=== PATIENT | female | born 1940 | race Caucasian/White ===

== ENCOUNTER → 2017-09-13 | Outpatient (CLI) | payer MEDICARE, BC ==
[2017-09-13 19:54] LABS: ALT 32 U/L (9-52); AST 18 U/L (14-36); Albumin 3.7 g/dL (3.5-5.0); Alkaline Phosphatase 74 U/L (38-126); Anion Gap 10 mmol/L; Basophils % (A) 1 %; Blood Urea Nitrogen 17 mg/dL (7-17); Calcium 9.5 mg/dL (8.4-10.2); Carbon Dioxide 32 mmol/L (22-30); Chloride 99 mmol/L (98-107); Cholesterol 133 mg/dL (<200); Eosinophils # (A) 0.2 k/uL (0-0.7); Eosinophils % (A) 2 %; Glucose 146 mg/dL (74-99); HDL Cholesterol 67 mg/dL (40-60); HGB 11.2 gm/dL (11.4-16.0); LDL Cholesterol,Calculated 44 mg/dL (0-99); Lymphocytes # (A) 2.1 k/uL (1.0-4.8); Lymphocytes % (A) 28 %; MCHC 31.2 g/dL (31.0-37.0); MCV 96.2 fL (80.0-100.0); Mean Platelet Volume 8.3; Monocytes # (A) 0.6 k/uL (0-1.0); Monocytes % (A) 7 %; Neutrophils # (A) 4.5 k/uL (1.3-7.7); Neutrophils % (A) 60 %; Platelet Count 243 k/uL (150-450); Potassium 4.5 mmol/L (3.5-5.1); RBC 3.74 m/uL (3.80-5.40); RDW 12.8 % (11.5-15.5); Sodium 141 mmol/L (137-145); Total Bilirubin 0.3 mg/dL (0.2-1.3); Triglycerides 108 mg/dL (<150); WBC 7.5 k/uL (3.8-10.6)
[2017-09-13 20:09] LABS: T4, Free (Free Thyroxine) 1.14 ng/dL (0.78-2.19)
[2017-09-14 01:33] LABS: Hemoglobin A1C 8.1 % (4.0-6.0)
== END | disposition home or self-care (01) ==
LOC: MMGSC 10:03
PROVIDERS: ATTEND Family Medicine
DX: I10 Essential (primary) hypertension (principal); E11.9 Type 2 diabetes mellitus without complications; E78.5 Hyperlipidemia, unspecified; G25.81 Restless legs syndrome
CPT/HCPCS: 36415; 80053; 80061; 82043; 82570; 83036; 84439; 84443; 85025

== ENCOUNTER → 2020-06-24 | Outpatient (CLI) | payer MEDICARE, BC ==
--- NOTE | 2020-06-26 13:52 | MM ---
Reason for exam: screening (asymptomatic). Last mammogram was performed 1 year and 5 months ago. History: Patient is postmenopausal. Physical Findings: A clinical breast exam by your physician is recommended on an annual basis and results should be correlated with mammographic findings. MG 3D Screening Mammo W/Cad Bilateral CC and MLO view(s) were taken. Prior study comparison: February 01, 2019, mammogram, performed at [facility]. January 17, 2017, mammogram, performed at [facility]. There are scattered fibroglandular densities. There is chronic nodularity bilaterally. Benign vascular calcifications. No significant changes when compared with prior studies. ASSESSMENT: Negative, BI-RAD 1 RECOMMENDATION: Routine screening mammogram of both breasts in 1 year.
== END | disposition home or self-care (01) ==
LOC: RADMAMWWP 13:07
PROVIDERS: ATTEND Family Medicine
DX: Z12.31 Encounter for screening mammogram for malignant neoplasm of breast (principal)
CPT/HCPCS: 77063; 77067

== ENCOUNTER → 2021-08-19 | Outpatient (CLI) | payer MEDICARE, BC ==
--- NOTE | 2021-08-23 12:08 | MM ---
Reason for exam: screening (asymptomatic). Last mammogram was performed 1 year and 2 months ago. History: Patient is postmenopausal. Physical Findings: A clinical breast exam by your physician is recommended on an annual basis and results should be correlated with mammographic findings. MG 3D Screening Mammo W/Cad Bilateral CC and MLO view(s) were taken. XCCL view(s) were taken of the left breast. Prior study comparison: June 24, 2020, bilateral MG 3d screening mammo w/cad. February 01, 2019, mammogram, performed at [facility]. There are scattered fibroglandular densities. Benign secretory and vascular calcifications. No significant changes when compared with prior studies. ASSESSMENT: Benign, BI-RAD 2 RECOMMENDATION: Routine screening mammogram of both breasts in 1 year.
== END | disposition home or self-care (01) ==
LOC: RADMAMWWP 09:55
PROVIDERS: ATTEND Family Medicine
DX: Z12.31 Encounter for screening mammogram for malignant neoplasm of breast (principal); Z78.0 Asymptomatic menopausal state
CPT/HCPCS: 77063; 77067

== ENCOUNTER → 2021-12-21 | Outpatient (CLI) | payer MEDICARE, BC ==
--- NOTE | 2021-12-21 11:27 | XR ---
EXAMINATION TYPE: XR cervical spine limited DATE OF EXAM: 12/21/2021 TECHNIQUE: Frontal, lateral, and open mouth view of the cervical spine are obtained. HISTORY: M54.42 M99.03 Sciatic Pain with low back pain radi COMPARISON: None FINDINGS: The cervical spine is visualized in its entirety from C1 thru the top of T1 level, there i s slight grade 1 retrolisthesis C2 on C3 with more prominent grade 1 retrolisthesis C3 on C4. There i s slight grade 1 retrolisthesis C4 on C5 and C5 on C6. Osseous structures are demineralized. The pre-vertebral soft tissue appears within normal limits. Th e C1-C2 articulation is within normal limits on the open mouth view. Vertebral body heights are maintained. Moderate to severe spurring and disc space narrowing C3-C4 and C4-C5 levels. [id number] disc space narrowing with moderate spurring C5-C6 level. Mild to mo derate disc space narrowing and spurring C6-C7 level. Prominent spur from the anterior inferior C7 ve rtebra. Mild calcification left carotid bulb level is present in the overlying soft tissue. IMPRESSION: As above.
--- NOTE | 2021-12-21 11:33 | XR ---
EXAMINATION TYPE: XR lumbar spine 2 or 3V DATE OF EXAM: 12/21/2021 CLINICAL HISTORY: Low back pain into left leg. TECHNIQUE: Frontal and lateral images of the lumbar spine are obtained. COMPARISON: None FINDINGS: There are 5 lumbar type vertebral bodies identified. There is levoconvex scoliosis centere d at L1-L2 level. There is severe disc space narrowing and spurring at L1-L2 level with endplate sclerosis. There is av ulsed anterior inferior L1 vertebra which has mild chronic compression type fracture or height loss. Severe disc space narrowing and moderate to severe spurring at L4-L5 level with vacuum disc phenomeno n. Moderate to severe disc space narrowing and spurring at L3-L4 level. Moderate disc space narrowing L5-S1 level with vacuum disc phenomenon. Large anterior osteophytes at T12-L1 level. Moderate chroni c compression type fracture involving the T12 vertebra with approximately 50% height loss. 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 Multilevel Facet arthropathy mid to lower lumbar s pine. Additional moderate to severe multilevel anterior and lateral spurring. Mild overlying arterial vascular calcification. IMPRESSION: As above.
== END | disposition home or self-care (01) ==
LOC: RADXRMAIN 10:59
DX: M43.12 Spondylolisthesis, cervical region (principal); M50.323 Other cervical disc degeneration at C6-C7 level; M25.78 Osteophyte, vertebrae; M41.86 Other forms of scoliosis, lumbar region; M47.816 Spondylosis without myelopathy or radiculopathy, lumbar region; M51.37 Other intervertebral disc degeneration, lumbosacral region
CPT/HCPCS: 72040; 72100